=== PATIENT | female | born 1955 | race Caucasian/White ===

== ENCOUNTER 2024-03-10 11:01 | Outpatient (OUT) | payer MEDICARE, SELFPAY ==
--- NOTE | 2024-03-10 11:12 | US_ITS ---
[address] [address] Patient Name: LADI PAUL MRN: [id number] date: 1955 Sex: F Assigned Patient Location: [facility] Current Patient Location: [facility] Accession/Order Number: [id number] Exam Date: 03/10/2024 11:18 Report Date: 03/10/2024 12:55 At the request of: SERAFIN HELMS Procedure: US venous doppler LE RT EXAM: US venous doppler LE RT HISTORY: Right Leg Swelling M79.89 COMPARISON: None. TECHNIQUE: Grayscale, color and Doppler FINDINGS: Region: Right leg Thrombus: None Flow: Normal Augmentation: Normal Compressibility: Normal US/US venous doppler LE RT IMPRESSION: No deep or superficial vein thrombus in the right leg Electronically authenticated by: APRIL CASAS Date: 03/10/2024 12:55
== END 2024-03-10 11:02 | disposition home or self-care (01) ==
LOC: RAD 11:05
PROVIDERS: PCP Nurse Practitioner Family; Visit Provider Nurse Practitioner Family
DX: M79.89 Other specified soft tissue disorders (principal)
CPT/HCPCS: 93971